=== PATIENT | male | born 1970 | race Caucasian/White ===

== ENCOUNTER 2017-02-24 19:22 | Emergency (ER) | payer OTHER ==
[~2017-02-24] VITALS: Ht 182.9 cm; Wt 94.2 kg
[2017-02-24 19:32] VITALS: TEMP 36.7; Ht 182.9 cm; Wt 94.2 kg
[2017-02-24] MEDS ORDERED: MULT-513 PO (20:24)
[2017-02-24] MEDS ORDERED: ASPI81TA28 PO (20:24)
--- NOTE | 2017-02-24 20:48 | EMERGENCY ROOM VISIT NOTE ---
History Report prepared by Raymond: Zohra Swain Under the Supervision of: Britany DoO. 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 He notes the palpitations lasted for three hours. He notes that he had palpations and shortness of breath three days ago. He was recently seen by his PCP today and was advised to come to the ED for evaluation four hours ago. 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 His last MT was in December 2016. He notes a history of intravenous drug abuse of cocaine. He denies any cardiac stents. The patient has a history of agoraphobia and anxiety. Source of History: patient Onset: three days EDUCATION AND OUTREACH COORDINATOR Position: other (global ) Quality: other (palpitations) Timing: intermittent Associated Symptoms: + SOB Note: He notes palpitations. Review of Systems See HPI for pertinent positives & negatives. A total of 10 systems reviewed and were otherwise negative. Past Medical & Surgical Medical Problems: (1) Agoraphobia (2) Anxiety (3) Right knee laparoscopy Surgical Problems: (1) H/O left knee surgery Social History Problems: (1) IV drug user Family History Family history was reviewed; no changes noted. Social History Smoking Status: Current Every Day Smoker (1 ppd) Alcohol Use: occasionally Drug Use: cocaine Marital Status: in relationship Housing Status: lives with significant other Occupation Status: employed Current/Historical Medications Scheduled Aspirin (Aspirin Ec), 81 MG PO DAILY Multivitamins/Minerals (Mvi With Minerals), 1 TAB PO DAILY Allergies Coded Allergies: No Known Allergies (Unverified , 02/24/17) Physical Exam Vital Signs Date Time Temp Pulse Resp B/P (MAP) Pulse Ox O2 Delivery O2 Flow Rate FiO2 02/24/17 21:32 80 18 94/60 97 Room Air 02/24/17 19:32 36.7 86 20 101/71 98 Room Air Physical Exam CONSTITUTIONAL/VITAL SIGNS: Reviewed / noted above. GENERAL: Non-toxic in appearance. Smells of alcohol on breath. INTEGUMENTARY: Warm, dry, and [place]. HEAD: Normocephalic. EYES: without scleral icterus or trauma. ENT/OROPHARYNX: clear and moist. LYMPHADENOPATHY/NECK: Is supple without lymphadenopathy or meningismus. RESPIRATORY: Lungs clear and equal. CARDIOVASCULAR: Regular rate and rhythm. GI/ABDOMEN: Soft and nontender. No organomegaly or pulsatile mass. No rebound or guarding. Normal bowel sounds. EXTREMITIES: Warm and well perfused. BACK: No CVA tenderness. NEUROLOGICAL: Intact without focal deficits. PSYCHIATRIC: normal affect. MUSCULOSKELETAL: Normally developed with good muscle tone. Medical Decision & Procedures ER Provider Diagnostic Interpretation: Radiology results as stated below per my review and radiologist interpretation: CHEST ONE VIEW PORTABLE HISTORY: Atypical chest pain. COMPARISON: None. FINDINGS: The lungs are clear. Cardiac silhouette is normal in size. No pleural effusions. No pneumothorax. IMPRESSION: No acute process. Electronically signed by: Alton Quijano M.D. 02/24/2017 9:06 PM Dictated Date/Time: 02/24/2017 9:04 PM Laboratory Results Test 02/24/17 20:46 02/24/17 20:50 Bedside Troponin I < 0.030 ng/ml (0-0.045) Bedside Hemoglobin 14.6 g/dl (14.0-18.0) Bedside Hematocrit 43 % (42-52) Bedside Sodium 146 mEq/L (135-144) Bedside Potassium 3.6 mEq/L (3.3-5.0) Bedside Chloride 107 mEq/L (101-112) Bedside Total CO2 26 mEq/l (24-31) Anion Gap 17.0 mmol/L (16-25) Bedside Blood Urea Nitrogen < 3 mg/dl (7-18) Bedside Creatinine 1.2 mg/dl (0.6-1.3) Bedside Glucose (other) 93 mg/dl (70-99) Bedside Ionized Calcium (Lexi) 1.07 mmol/l (1.12-1.32) ECG Indication: palpitations Rate (beats per minute): 79 Rhythm: normal sinus Findings: no acute ischemic change, no ectopy ED Course 2022: Previous medical records were reviewed. The patient was evaluated in room B4B. A complete history and physical examination was performed. I answered all pertaining questions that he had. He expressed understanding and verbalized agreement. The patient will be discharged home. 2129: The patient left before notification of results. Medical Decision Differentials considered include acute myocardial infarction, acute coronary syndrome, myocarditis, pericarditis, pericardial effusions /tamponade, esophageal perforation, thoracic aortic dissection, pulmonary embolism, pneumonia, pneumothorax, pancreatitis, shingles, acute cholecystitis, and perforated abdominal viscus. This is a 46-year-old male who presents to the ED with a chief complaint of the above. The patient states that he has a history of MT related to cocaine use. He has not used cocaine recently. He has intermittent heart racing and states that her randomly hits him. The patient states that he went to his PCP was told to come here for evaluation. The patient has a normal exam. He is currently not having symptoms. An EKG shows a normal sinus rhythm without ectopy or acute injury. Rate of 79. His chest x-ray was unremarkable. Troponin was negative. There is no anemia or electrolyte abnormality. The patient was told results. He is felt to be stable for discharge. Medication Reconcilliation Current Medication List: was personally reviewed by me Blood Pressure Screening Patient's blood pressure: Normal blood pressure Impression Primary Impression: Palpitations Scribe Attestation The scribe's documentation has been prepared under my direction and personally reviewed by me in its entirety. I confirm that the note above accurately reflects all work, treatment, procedures, and medical decision making performed by me. Departure Information Dispostion Home / Self-Care Referrals No Doctor, Assigned (PCP) Forms HOME CARE DOCUMENTATION FORM, IMPORTANT VISIT INFORMATION, WORK / SCHOOL INSTRUCTIONS Patient Instructions My [facility] [employer] Additional Instructions Talk to your doctor about obtaining a Holter monitor or event monitor. Return for any concerns. Cardiac enzymes, EKG and chest x-ray today were normal.
[2017-02-24 21:03] LABS: ISTAT CREATININE 1.2 mg/dl (0.6-1.3); ISTAT IONIZED CALCIUM 1.07 mmol/l (1.12-1.32); ISTAT POTASSIUM 3.6 mEq/L (3.3-5.0); ISTAT SODIUM 146 mEq/L (135-144)
--- NOTE | 2017-02-24 21:07 | DIAGNOSTIC IMAGING REPORT ---
CHEST ONE VIEW PORTABLE HISTORY: Atypical chest pain. COMPARISON: None. FINDINGS: The lungs are clear. Cardiac silhouette is normal in size. No pleural effusions. No pneumothorax. IMPRESSION: No acute process. Electronically signed by: Alton Quijano M.D. 02/24/2017 9:06 PM Dictated Date/Time: 02/24/2017 9:04 PM
[2017-02-24 21:32] VITALS: BP 94/60; PULSE 80; O2SAT 97
== END 2017-02-24 21:52 | disposition home or self-care (01) ==
LOC: C.EDB 19:25
DX: R00.2 Palpitations (principal); I25.2 Old myocardial infarction; F41.9 Anxiety disorder, unspecified; F17.200 Nicotine dependence, unspecified, uncomplicated; Z98.890 Other specified postprocedural states; Z79.82 Long term (current) use of aspirin